=== PATIENT | female | born 1990 | race African-American/Black ===

== ENCOUNTER 2025-03-29 08:02 | Outpatient (REF) | payer OTHER, SELFPAY ==
[2025-03-29 09:07] LABS: MANUAL DIFF FLAG NO
[2025-03-29 10:05] LABS: Hematocrit 40.6 % (37.0-47.0); Hemoglobin 13.3 g/dl (12.0-16.0); Imm Gran Abs Auto 0.00 X10*3/uL (0.00-0.03); Imm Gran Pct Auto 0.0 % (0.0-0.4); Lymphocytes Absolute Auto 2.2 X10*3/uL (1.2-4.9); Mean Corpuscular HGB Conc 32.8 g/dl (31.0-35.0); Mean Corpuscular Hemoglobin 31.4 pg (27.0-33.0); Mean Corpuscular Volume 96.0 fL (80.0-98.0); NRBC Abs Auto 0.000 X10*3/uL (0.0-0.012); NRBC Pct Auto 0.0 /100WBC (0.0-0.2); Platelet Count 352 X10*3/uL (160-400); Red Blood Count 4.23 X10*6/uL (4.20-5.50); White Blood Count 4.0 X10*3/uL (4.8-10.8)
[2025-03-29 10:38] LABS: Alanine Aminotransferase 19 U/L (0-31); Albumin Level 4.4 g/dL (3.5-5.0); Alkaline Phosphatase 79 U/L (39-117); Anion Gap 11 (12-20); Aspartate Amino Transferase 28 U/L (5-31); Blood Urea Nitrogen 7 mg/dL (9-16); Calcium 9.4 mg/dL (8.4-10.2); Carbon Dioxide 25 mmol/L (22-29); Chloride 107 mmol/L (96-108); Cholesterol 182 mg/dL (<200); Estimated Glomerular Filt Rate > 60; HDL Cholesterol 44 mg/dL (>40); Potassium 3.9 mmol/L (3.3-5.1); Sodium 139 mmol/L (135-145); Total Protein 7.5 g/dL (6.5-8.0); Triglycerides 121 mg/dL (<150)
== END 2025-03-29 08:03 | disposition home or self-care (01) ==
LOC: HO.LAB 08:02
PROVIDERS: PCP Physician Assistant; Visit Provider Physician Assistant
DX: Z76.89 Persons encountering health services in other specified circumstances (principal); L30.9 Dermatitis, unspecified; L73.2 Hidradenitis suppurativa; J45.909 Unspecified asthma, uncomplicated; E66.9 Obesity, unspecified; F41.1 Generalized anxiety disorder; Z68.30 Body mass index [BMI] 30.0-30.9, adult
CPT/HCPCS: 36415; 80048; 80061; 80076; 82306; 83036; 84443; 85025; 99202

== ENCOUNTER 2025-03-29 08:02 | Outpatient (AMB) | payer OTHER, SELFPAY ==
--- NOTE | 2025-03-29 08:10 | MHC.PC.OV ---
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 Occupational Required: No Accompanied by: Self / Same As Patient Allergies Penicillins Allergy (Intermediate, Verified 03/29/25 08:14) Rash Medication List - Last Reconciled 03/29/25 by BALAJI Scott cetirizine 10 mg PO DAILY clindamycin phosphate 1% topical BID doxycycline hyclate 100 mg PO DAILY multivitamin with iron 1 tab PO DAILY sertraline 50 mg PO DAILY tirzepatide (weight loss) (Zepbound) 10 mg subcut QWEEK triamcinolone acetonide 0.1% topical BID-TID triamcinolone acetonide 0.1% appl topical TID Tobacco use date assessed: 03/29/25 Dental Screening Dental Screen Date: 03/29/25 Did you have a dental visit in the last 12 months?: Yes Did you have a dental problem in the last 6 months where you did not have access to dental care?: No Was dental information given to patient?: Patient has dentist HPI HPI Comments History of Present Illness Details 34-year-old female with history of asthma, hidradenitis, obesity presenting to the office today for management of chronic conditions and to establish care. She is a former patient of [facility], last seen several months ago for annual physical exam. Asthma- triggered at higher weight. Was wheezing several weeks. However, no recent albuterol use Obesity-BMI 30.0 Hidradenitis suppurativa-has been improving with weight loss. On doxycycline 100 mg daily and clindamycin gel Concerns: Weight gain. Had been on Zepbound after [place], but insurance issues. Has been on this for a year 10mg. Was 185 and lost pounds over a period of about 6 months. Has been without this for about 2 months. Since then has gained 20 pounds. Does power walking for 50 minutes 3 times walking. Has increased appetite, snacks more often than she was prior. Upset about weight gain Health maintenance: [facility] smear is up-to-date Reviewed past medical, surgical, family, social history ROS: General: No fevers, malaise, unintentional weight loss HEENT: No blurred vision, diplopia. No sore throat, nasal congestion, rhinorrhea, sinus pain, ear pain Cardiovascular: No chest pain, palpitations, or leg edema Respiratory: No shortness of breath, wheezing, cough GI: No abdominal pain, nausea, vomiting, diarrhea, constipation, melena, hematochezia : No dysuria, hematuria, increased urinary frequency, decreased urinary output MSK: No myalgia, back pain Neuro: No headaches, weakness, paresthesias Skin: No rashes or lesions EXAM: Constitutional - Awake and Alert, No apparent distress Eyes - PERRL Cardiovascular - S1S2, RRR, No edema Respiratory - Normal lung expansion, Normal respiratory effort, No respiratory distress, CTA bilaterally Extremities - no calf tenderness bilaterally, no swelling Skin - Warm/Dry Neurological - Alert & oriented x3 Psychological - Appropriate affect [facility] Medical History (Updated 03/29/25 @ 08:53 by BALAJI Scott) Generalized anxiety disorder Eczema Asthma Hidradenitis Obesity Surgical History H/O liposuction Family History Father Congestive heart failure Mother Suicide Maternal Grandfather Bone cancer Social History Housing: Condominium Patient Tobacco Use Status: Never used Tobacco e-Cigarette/Vaping Use: Never Used service: No Current occupational status: employed 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 How often do you have six or more drinks on one occasion?: Never Total Score: 0 Physical exam (Primary Care) Vital Signs: Last Vital Signs Temp 97.7 F 03/29/25 08:16 Pulse 60 03/29/25 08:16 Resp 14 03/29/25 08:16 BP 106/76 03/29/25 08:16 Pulse Ox 99 03/29/25 08:16 Oxygen Delivery Method Room Air 03/29/25 08:16 BMI result Body Mass Index 30.0 Tobacco/Smoking Status: Tobacco use Status Tobacco use date assessed 03/29/25 03/29/25 08:18 Patient Tobacco Use Status Never used Tobacco 03/29/25 08:18 e-Cigarette/Vaping Use Never Used 03/29/25 08:18 Coding Level of Care Code New Pt Level 4 (03504) Add On Problem Visit Only Diagnoses Encounter to establish care Z76.89 Eczema L30.9 Hidradenitis L73.2 Asthma J45.909 Obesity E66.9 Generalized anxiety disorder F41.1 Assessment & Plan Assessment & Plan (1) Encounter to establish care: Code(s): Z76.89 - Persons encountering health services in other specified circumstances Category: Medical Plan: 34-year-old female presenting to establish care. Reviewed past medical, surgical, family, social history. (2) Eczema: Code(s): L30.9 - Dermatitis, unspecified Category: Medical Plan: Can continue steroid cream as needed (3) Hidradenitis: Code(s): L73.2 - Hidradenitis suppurativa Category: Medical Plan: Discussed etiology and pathophysiology. She can continue doxycycline as well as clindamycin gel. At this time, blood pressure remains low normal, unable to initiate antigen lowering medications such as spironolactone. We will continue monitoring (4) Asthma: Code(s): J45.909 - Unspecified asthma, uncomplicated Category: Medical Plan: Controlled. Albuterol PRN (5) Obesity: Code(s): E66.9 - Obesity, unspecified Category: Medical Plan: Previously experienced a great weight loss with the appropriate use of Zepbound. We will tolerated. She does continue with brisk exercise for 150 minutes weekly. Has been following a healthy diet overall but does note that she has had more cravings since discontinuing the medication. He would greatly benefit from resuming Zepbound. She has been without the medication for 1 month, will initiate medication at 2.5 mg weekly (6) Generalized anxiety disorder: Code(s): F41.1 - Generalized anxiety disorder Category: Medical Plan: Recommend patient seek out counselor, given information on looking counseled recent insurance. Also interested in trialing medication. Initiate sertraline 50 mg daily, take 1/2 dose daily x1 week. She is counseled on side effects including black box warning. Discussed coping mechanisms such as mindfulness and given written information on this. Plan Follow-up in the office in 6 weeks to discuss anxiety. Labs as below Orders: Orders Hemoglobin A1c Today Z76.89 - Persons encountering health services in other specified circumstances Vitamin D 25-OH Total Today Z76.89 - Persons encountering health services in other specified circumstances Basic Metabolic Panel Today Z76.89 - Persons encountering health services in other specified circumstances Complete Blood Count Auto Diff Today Z76.89 - Persons encountering health services in other specified circumstances Lipid Panel Today Z76.89 - Persons encountering health services in other specified circumstances Liver Panel Today Z76.89 - Persons encountering health services in other specified circumstances TSH reflex Free T4 Today Z76.89 - Persons encountering health services in other specified circumstances Medications: New sertraline Take 1/2 tab daily x1 week, then increase to 1 tab daily 50 mg PO DAILY 90 tabs 1RF tirzepatide (weight loss) (Zepbound) for 4 weeks 2.5 mg (0.5 mL) subcut QWEEK 2 mL 0RF E66.9 - Obesity, unspecified, J45.909 - Unspecified asthma, uncomplicated, L30.9 - Dermatitis, unspecified, L73.2 - Hidradenitis suppurativa tirzepatide (weight loss) (Zepbound) for 4 weeks 2.5 mg (0.5 mL) subcut QWEEK 2 mL 0RF E66.9 - Obesity, unspecified, J45.909 - Unspecified asthma, uncomplicated, L30.9 - Dermatitis, unspecified, L73.2 - Hidradenitis suppurativa Patient Instructions: [email or web address]
[2025-03-29 08:16] VITALS: BP 106/76; PULSE 60; RESP 14; TEMP 36.5; O2SAT 99
== END 2025-03-29 08:48 | disposition home or self-care (01) ==
LOC: HO.HMCHD 08:02
PROVIDERS: Visit Provider Physician Assistant
DX: Z76.89 Persons encountering health services in other specified circumstances (principal); L30.9 Dermatitis, unspecified; L73.2 Hidradenitis suppurativa; J45.909 Unspecified asthma, uncomplicated; E66.9 Obesity, unspecified; F41.1 Generalized anxiety disorder